=== PATIENT | female | born 1955 | race Caucasian/White ===

== ENCOUNTER 2016-07-18 15:18 | Emergency (ER) | payer OTHER ==
[2016-07-18 15:30] VITALS: BP 122/72; PULSE 94; TEMP 98.1; BMI 34.5
--- NOTE | 2016-07-18 16:20 | PDOC ---
History of Present Illness - General Chief Complaint: Cold Symptoms Stated Complaint: FEVER, CHILLS Time Seen by Provider: 07/18/16 15:57 History Source: Patient Exam Limitations: No Limitations - History of Present Illness Initial Comments: 07/18/16 16:26 Patient states had onset of fevers, MAXIMUM TEMPERATURE 101, moist nonproductive cough although patient is a smoker, general body aches and sore throat pain 2 days. States received a flu shot but was uncertain as to possible contraction of influenza. Has taken ibuprofen with minimal resolved. 07/18/16 16:59 Timing/Duration: reports: getting worse Severity: reports: mild Associated Symptoms: reports: cough, fever/chills, muscle aches, nasal congestion, shortness of breath Past History - Travel Traveled outside of the country in the last 30 days: No Close contact w/someone who was outside of country & ill: No - Past Medical History Allergies/Adverse Reactions: Allergies Allergy/AdvReac Type Severity Reaction Status Date / Time No Known Allergies Allergy Verified 07/18/16 15:30 Home Medications: Ambulatory Orders Clotrimazole [Lotrimin 1% Cream -] 1 applic TP BID #1 tube 07/18/16 Oseltamivir Phosphate [Tamiflu -] 75 mg PO BID #10 capsule 07/18/16 HTN: Yes Thyroid Disease: Yes Other medical history: CHRONIC PAIN - Psycho/Social/Smoking Cessation Hx Anxiety: Yes Suicidal Ideation: No Smoking History: Current every day smoker Have you smoked in the past 12 months: Yes Number of Cigarettes Smoked Daily: 4 Information on smoking cessation initiated: Yes 'Breaking Loose' booklet given: 07/18/16 Hx Alcohol Use: No Drug/Substance Use Hx: No Review of Systems - Review of Systems Able to Perform ROS?: Yes Is the patient limited Azerbaijani proficient: Yes Constitutional: Yes: Symptoms Reported, See HPI, Chills, Malaise HEENTM: Yes: Symptoms Reported, See HPI, Nose Congestion, Throat Swelling Respiratory: Yes: Symptoms reported, See HPI, Cough, Wheezing ABD/GI: Yes: Symptoms Reported, See HPI : No: Symptoms Reported Musculoskeletal: Yes: Symptoms Reported, Muscle Pain Integumentary: Yes: Symptoms Reported, Pruritus, Rash (to pannus folds ) All Other Systems: Reviewed and Negative *Physical Exam - Vital Signs Last Vital Signs Temp Pulse Resp BP Pulse Ox 98.1 F 94 H 20 122/72 96 07/18/16 15:25 07/18/16 15:25 07/18/16 15:25 07/18/16 15:25 07/18/16 15:25 - Physical Exam General Appearance: Yes: Nourished, Appropriately Dressed, Apparent Distress, Mild Distress HEENT: positive: MANUEL, Normal ENT Inspection, TMs Normal Neck: positive: Supple. negative: Tender, Lymphadenopathy (R), Lymphadenopathy (L) Respiratory/Chest: positive: Lungs Clear Cardiovascular: positive: Regular Rhythm Gastrointestinal/Abdominal: positive: Tender, Soft. negative: Normal Bowel Sounds Musculoskeletal: positive: Normal Inspection Extremity: positive: Normal Capillary Refill, Normal Range of Motion Integumentary: positive: Normal Color, Rash, Other (keritonized discolored skin in pannus, consistant with ronni ) Neurologic: positive: eye dropper assembler II-XII NML intact, Fully Oriented, Alert, Normal Mood/ Affect, Normal Response Progress Note - Progress Note Progress Note: Upper respiratory infection, probable influenza. Will treat with Tamiflu. Also tinea corporis and will provide Lotrimin twice a day for same *DC/Admit/Observation/Transfer Diagnosis at time of Disposition: Influenzal acute upper respiratory infection, Tinea corporis - Discharge Dispostion Disposition: HOME Condition at time of disposition: Stable Admit: No - Patient Instructions Printed Discharge Instructions: DI for Viral Upper Respiratory Infection -- Adult, DI for Tinea Corporis Additional Instructions: Rest, drink lots of fluids: Teas, water, soups, Pedialyte Saltwater gargles Steamy showers/seem to face break up mucus Old-fashioned treatments help! Avoid contact with others until fevers and cough resolved as this is very contagious Lots of handwashing and good hygiene Continue [id number] medications for symptomatic relief Tylenol or Motrin for fever and pain Take all of Tamiflu as directed: 1 tab every 12 hours for 5 days Stop smoking Followup with private physician in one to 2 days as needed or if worsening Return to emergency department for worsened symptoms, fevers, dehydration Influenza takes between 5 and 7 days for resolution To not participate in any activity, work, or school until fevers and cough are gone for at least one day Rest, keep cool and dry- avoid strenuous activity or hot /humid environments Less hot showers, no abrasive soaps May use heavy creams like Eucerin or Cetaphil to keep skin moist May apply Aveeno, calamine lotion, [id number] hydrocortisone creams as needed for symptoms May use Benadryl at night for antihistamine, Zyrtec/ Maira or Claritin for daytime antihistamine use to help with itching May use [id number] hydrocortisone cream on all areas except face Try to identify cause for rash and avoid exposures Followup with PMD in one week if no resolution Make appointment with clip on sunglasses inspector for evaluation when possible
== END 2016-07-18 17:20 | disposition home or self-care (01) ==
LOC: JERFT 15:18
DX: B35.4 Tinea corporis (principal); J11.1 Influenza due to unidentified influenza virus with other respiratory manifestations; F17.210 Nicotine dependence, cigarettes, uncomplicated; I10 Essential (primary) hypertension; E07.9 Disorder of thyroid, unspecified; G89.29 Other chronic pain
CPT/HCPCS: 99281-25

== ENCOUNTER 2016-07-25 13:41 | Emergency (ER) | payer OTHER ==
[2016-07-25 13:53] VITALS: BP 138/71; PULSE 107; BMI 33.6
--- NOTE | 2016-07-25 14:39 | PDOC ---
History of Present Illness - General Chief Complaint: Cold Symptoms Stated Complaint: FEVER, BODYACHES Time Seen by Provider: 07/25/16 14:02 History Source: Patient Exam Limitations: No Limitations - History of Present Illness Initial Comments: 07/25/16 15:02 Chief complaint: Fever, chills, productive cough, sore throat History of present illness: Patient is a 61-year-old female with a history of COPD, HTN, hypothyroidism, IBS, anxiety, bilateral total knee replacement here today complaining of sore throat 4 days with nasal congestion, and productive cough with yellowish phlegm with intermittent shortness of breath and wheezing when lying down. Patient also reports having urinary frequency but denies dysuria or hematuria. Patient reports that due to having reconstructive bladder surgery years ago she always has urgency. She denies any nausea, vomiting, OR any CVA tenderness. She was seen here on 07/18/2016 treated with Tamiflu. Patient denies being around anyone sick especially children. Patient reports that her temp last night was a MAXIMUM TEMPERATURE of 102.4. She took ibuprofen 800 mg 2 hours ago. 07/25/16 15:06 07/25/16 15:07 Timing/Duration: getting worse, intermittent Severity: moderate Associated Symptoms: reports: cough (yellowish), fever/chills, shortness of breath (intermittent ), other (urinary frequency ) Past History - Past Medical History Allergies/Adverse Reactions: Allergies Allergy/AdvReac Type Severity Reaction Status Date / Time No Known Allergies Allergy Verified 07/25/16 13:48 Home Medications: Ambulatory Orders Albuterol Sulfate Inhaler - [Ventolin HFA Inhaler -] 1 inh PO Q4H PRN #1 inhaler 07/25/16 Amoxicillin/Potassium Clav [Augmentin 875-125 Tablet] 1 each PO BID #14 tablet 07/25/16 COPD: Yes HTN: Yes Thyroid Disease: Yes - Surgical History Cholecystectomy: Yes Orthopedic Surgery: Yes (b/l tkr) - Psycho/Social/Smoking Cessation Hx Anxiety: Yes Suicidal Ideation: No Smoking History: Current every day smoker Have you smoked in the past 12 months: Yes Number of Cigarettes Smoked Daily: 4 Information on smoking cessation initiated: No 'Breaking Loose' booklet given: 07/18/16 Hx Alcohol Use: No Drug/Substance Use Hx: No Review of Systems - Review of Systems Able to Perform ROS?: Yes Constitutional: Yes: Chills, Fever HEENTM: Yes: Throat Pain Respiratory: Yes: Shortness of Breath (intermittent ), Wheezing (intermittent ) , Productive cough (yellowish ) Cardiac (ROS): No: Symptoms Reported : Yes: Frequency (slightly more than usual ), Urgency (unchanged has chronically ). No: Burning, Flank Pain, Hematuria Musculoskeletal: No: Symptoms Reported Integumentary: No: Symptoms Reported Neurological: No: Symptoms reported *Physical Exam - Vital Signs Last Vital Signs Temp Pulse Resp BP Pulse Ox 9.2 F L 107 H 18 138/71 95 07/25/16 13:43 07/25/16 13:43 07/25/16 13:43 07/25/16 13:43 07/25/16 13:43 - Physical Exam General Appearance: Yes: Appropriately Dressed HEENT: positive: TMs Normal, Pharyngeal Erythema. negative: Tonsillar Exudate, Tonsillar Erythema, Nasal Congestion, Rhinorrhea Neck: negative: Lymphadenopathy (R), Lymphadenopathy (L) Respiratory/Chest: positive: Lungs Clear, Normal Breath Sounds, Decreased Breath Sounds (slight diffuse) Cardiovascular: positive: Regular Rhythm, Regular Rate, S1, S2 Musculoskeletal: negative: CVA Tenderness, CVA Tenderness (R), CVA Tenderness (L ) Integumentary: positive: Normal Color Neurologic: positive: Alert, Normal Response, Responsive Medical Decision Making - Medical Decision Making 07/25/16 15:06 Patient is a 61-year-old female with a history of COPD, IBS, anxiety, bilateral total knee replacement here today complaining of sore throat 4 days with nasal congestion, and productive cough with yellowish phlegm with intermittent shortness of breath and wheezing when lying down. Patient also reports having urinary frequency but denies dysuria or hematuria. Patient reports that due to having reconstructive bladder surgery years ago she always has urgency. She denies any nausea, vomiting, OR any CVA tenderness. She was seen here on 2016 treated with Tamiflu. Patient denies being around anyone sick especially children. Patient reports that her temp last night was a MAXIMUM TEMPERATURE of 102.4. She took ibuprofen 800 mg 2 hours ago. 07/25/16 15:09 productive cough r/o infiltrate pharyngitis r/o strep r/o infiltrate r/o UTI BRONCHITIS Laboratory Tests 07/25/16 14:50 Urine Color Rena Urine Appearance Clear Urine pH 5.0 Ur Specific [place] 1.031 Urine Protein 1+ H Urine Glucose (UA) Negative Urine Ketones Trace H Urine Blood Negative Urine Nitrite Negative Urine Bilirubin 4.0 Urine Urobilinogen 2.0 e.u/dl H Ur Leukocyte Esterase Trace H PLAN: u/a urine c& S duoneb influenza A & B rapid negative throat C & S negative xray chest PA/lateral no acute pathology will treat with augmenting 875 mg/125 mg bid for 7 days 07/25/16 16:20 07/25/16 16:23 07/25/16 16:36 *DC/Admit/Observation/Transfer Diagnosis at time of Disposition: Bronchitis - Discharge Dispostion Disposition: HOME Condition at time of disposition: Stable - Patient Instructions Additional Instructions: Increase fluids and rest Follow-up with your primary care provider within the next couple of days Return to emergency room if any difficulty breathing or any new symptoms develop We will call you if any pending labs require you to take additional medication Patient voiced understanding of discharge instructions and all questions were answered
[2016-07-25] MEDS ORDERED: ALBUTEROL SO4 2.5/IPRATROPIUM 0.5 INH SOL 3 ML VIAL.NEB. NEB ONE ×3 (14:56→15:09)
[2016-07-25 15:01] VITALS: TEMP 99.2
[2016-07-25 15:03] LABS: URINE APPEARANCE CLEAR; URINE BLOOD NEGATIVE (NEGATIVE); URINE COLOR AMBER; URINE GLUCOSE (UA) NEGATIVE (NEGATIVE); URINE KETONE TRACE (NEGATIVE); URINE NITRITE NEGATIVE (NEGATIVE); URINE UROBILINOGEN 2.0 E.U/dl E.U./dl (0.2-1.0)
[2016-07-25 15:25] LABS: URINE LEUK ESTERASE TRACE (NEGATIVE); URINE PROTEIN 1+ (NEGATIVE)
== END 2016-07-25 16:48 | disposition home or self-care (01) ==
LOC: JER 13:41 → JERFT 13:41
PROC: 3E0F7GC Introduction of Other Therapeutic Substance into Respiratory Tract, Via Natural or Artificial Opening (ICD-10-PCS; principal; 2016-07-25)
DX: J20.9 Acute bronchitis, unspecified (principal); I10 Essential (primary) hypertension; J44.9 Chronic obstructive pulmonary disease, unspecified; E03.9 Hypothyroidism, unspecified; F41.9 Anxiety disorder, unspecified; K58.9 Irritable bowel syndrome, unspecified
CPT/HCPCS: 71020-TC; 81003; 81015; 87070; 87430; 87804; 94640; 99281-25

== ENCOUNTER 2017-04-30 16:39 | Emergency (ER) | payer OTHER ==
[2017-04-30 16:46] VITALS: BP 139/86; PULSE 77; TEMP 98.6; BMI 34.9
--- NOTE | 2017-04-30 16:49 | PDOC ---
Rapid Medical Evaluation Chief Complaint: Back Pain Time Seen by Provider: 04/30/17 16:46 Medical Evaluation: Allergies Allergy/AdvReac Type Severity Reaction Status Date / Time No Known Allergies Allergy Verified 04/30/17 16:40 Vital Signs Temp Pulse Resp BP Pulse Ox 98.6 F 77 18 139/86 100 04/30/17 16:42 04/30/17 16:42 04/30/17 16:42 04/30/17 16:42 04/30/17 16:42 04/30/17 16:46 The patient presents with a chief complaint of: Lower Back pain for 3/4 days, Tactile fever. ] I have performed a brief in-person evaluation of this patient. Pertinent physical exam findings: vss, [Abdomen is soft, nontender, nondistended, Lungs clear, RRR] I have ordered the following: [UA, UC] The patient will proceed to the ED for further evaluation. Discharge Disposition - Diagnosis Back pain Qualifiers: Back pain location: low back pain Chronicity: acute - Referrals - Patient Instructions - Post Discharge Activity
[2017-04-30 17:27] LABS: URINE APPEARANCE CLEAR; URINE BILIRUBIN NEGATIVE (NEGATIVE); URINE BLOOD NEGATIVE (NEGATIVE); URINE COLOR LTYELLOW; URINE GLUCOSE (UA) NEGATIVE (NEGATIVE); URINE KETONE NEGATIVE (NEGATIVE); URINE LEUK ESTERASE NEGATIVE (NEGATIVE); URINE NITRITE NEGATIVE (NEGATIVE); URINE PROTEIN NEGATIVE (NEGATIVE); URINE UROBILINOGEN NEGATIVE mg/dL (0.2-1.0)
--- NOTE | 2017-04-30 17:37 | PDOC ---
History of Present Illness - General Chief Complaint: Back Pain Stated Complaint: PAIN Time Seen by Provider: 04/30/17 16:46 History Source: Patient Exam Limitations: No Limitations - History of Present Illness Initial Comments: 04/30/17 17:34 62 yr female with c/o urinary urgency and pain for 2 days. neg nvd Severity: mild Past History - Past Medical History Allergies/Adverse Reactions: Allergies Allergy/AdvReac Type Severity Reaction Status Date / Time No Known Allergies Allergy Verified 04/30/17 16:40 Home Medications: Ambulatory Orders NK [No Known Home Medication] 04/30/17 COPD: Yes HTN: Yes Thyroid Disease: Yes Other medical history: back pain chronic - Surgical History Cholecystectomy: Yes Orthopedic Surgery: Yes (b/l tkr) - Suicide/Smoking/Psychosocial Hx Smoking History: Current every day smoker Have you smoked in the past 12 months: Yes Number of Cigarettes Smoked Daily: 4 Information on smoking cessation initiated: Yes 'Breaking Loose' booklet given: 04/30/17 Hx Alcohol Use: No Drug/Substance Use Hx: No Substance Use Type: None Review of Systems - Review of Systems Able to Perform ROS?: Yes Is the patient limited Cymro proficient: No Constitutional: No: Symptoms Reported ABD/GI: No: Symptoms Reported : Yes: Symptoms Reported *Physical Exam - Vital Signs Last Vital Signs Temp Pulse Resp BP Pulse Ox 98.6 F 77 18 139/86 100 04/30/17 16:42 04/30/17 16:42 04/30/17 16:42 04/30/17 16:42 04/30/17 16:42 - Physical Exam General Appearance: Yes: Nourished, Appropriately Dressed HEENT: positive: EOMI, MANUEL Neck: positive: Supple. negative: Tender Respiratory/Chest: positive: Lungs Clear, Normal Breath Sounds, Other (prod cough yellow white phlegm). negative: Rhonchi, Wheezing Cardiovascular: positive: Regular Rhythm, Regular Rate Gastrointestinal/Abdominal: positive: Normal Bowel Sounds, Soft. negative: Tender Lymphatic: negative: Adenopathy Musculoskeletal: positive: Normal Inspection Extremity: positive: Normal Capillary Refill, Normal Inspection, Normal Range of Motion Integumentary: positive: Normal Color, Dry, Warm Neurologic: positive: Fully Oriented, Alert, Normal Mood/Affect, Normal Response , Motor Strength 5/5 Medical Decision Making - Medical Decision Making 04/30/17 19:37 cc: low back pain, urinary urgency which is chronic pt states neg nvd pos cough productive yellow phlegm no abd pain neg nvd pt followed by pain management vitals stable will check UA non toxic stable vitals I discussed with the pt her urine is negative, as pt has vague urinary complaints will wait for the urine culture pt agrees and will also follow with her PMD this week if any changes 04/30/17 19:42 *DC/Admit/Observation/Transfer Diagnosis at time of Disposition: Back pain Qualifiers: Back pain location: low back pain Chronicity: acute Back pain laterality: bilateral Sciatica presence: without sciatica Qualified Code(s): M54.5 - Low back pain - Discharge Dispostion Disposition: HOME Condition at time of disposition: Good - Referrals Referrals: Monty Higgins MD [Staff Physician] - - Patient Instructions Additional Instructions: please follow with your doctor in 1-2 days for follow up the urine sample today does NOT show any infection, we have sent out a culture and we will call you in a few days if any treatment is needed drink pleanty of water take tylenol 650mg every 4-6hrs for fever as needed Return to ER for any worsening symptoms - Post Discharge Activity
--- NOTE | 2017-05-03 07:47 | PDOC ---
Patient Follow-up (Call Back) - Post ED Follow - Up Condition at time of discharge: Good Disposition at time of original discharge: HOME Reason for Call Back: Abnwl. Microbiology (Left message on patient's home phone) - Disposition Rx Needed: Yes Additional Instructions/Notes: Pt called back. Sent Rx for Macrobid to pharmacy.
== END 2017-04-30 17:51 | disposition home or self-care (01) ==
LOC: JERFT 16:39
DX: M54.5 Low back pain (principal); I10 Essential (primary) hypertension; J44.9 Chronic obstructive pulmonary disease, unspecified; Z96.653 Presence of artificial knee joint, bilateral; Z90.49 Acquired absence of other specified parts of digestive tract; F17.210 Nicotine dependence, cigarettes, uncomplicated
CPT/HCPCS: 81003; 87086; 87186; 99281-25

== ENCOUNTER 2018-07-25 14:20 | Emergency (ER) | payer OTHER ==
[2018-07-25] MEDS ORDERED: ALBUTEROL SO4 2.5/IPRATROPIUM 0.5 INH SOL 3 ML VIAL.NEB. NEB ONE ×4 (14:24→16:56)
--- NOTE | 2018-07-25 14:26 | PDOC ---
Rapid Medical Evaluation Chief Complaint: Respiratory Time Seen by Provider: 07/25/18 14:21 Medical Evaluation: Allergies Allergy/AdvReac Type Severity Reaction Status Date / Time No Known Allergies Allergy Verified 10/15/17 15:42 07/25/18 14:21 63 year old female coughing and phelgm with SOB x 2 days. history of COPD PE: patient alert ox3. + wheezing A'; SOB P: labs chest xray EKG duoneb patient to the ER for further management of care. Discharge Disposition - Diagnosis Shortness of breath - Referrals - Patient Instructions - Post Discharge Activity
[2018-07-25 14:30] VITALS: BMI 33.6
[2018-07-25 14:54] LABS: BASO % 0.9 % (0-2.0); EOS % 1.8 % (0-4.5); HEMATOCRIT 42.2 % (32.4-45.2); HEMOGLOBIN 14.1 GM/dL (10.7-15.3); LYMPH % 21.2 % (8-40); MCH 30.2 pg (25.7-33.7); MCHC 33.5 g/dl (32.0-36.0); NEUT % 71.1 % (42.8-82.8); PLATELET COUNT 354 K/MM3 (134-434); RBC 4.69 M/mm3 (3.60-5.2); RDW 14.5 % (11.6-15.6); WHITE BLOOD COUNT 11.1 K/mm3 (4.0-10.0)
[2018-07-25 15:06] LABS: INR 0.97 (0.83-1.09); PROTHROMBIN TIME (PATIENT) 11.4 SEC (9.7-13.0)
[2018-07-25 15:07] LABS: EPI CELLS 14.2 /HPF (0-5/HPF); PH,URINE 5.5 (5.0-8.0); URINE APPEARANCE CLOUDY; URINE BACTERIA 1273.2 /hpf (NEGATIVE); URINE BILIRUBIN 1+ (NEGATIVE); URINE CASTS 17 /lpf (0-8); URINE COLOR DK YELLOW; URINE GLUCOSE (UA) NEGATIVE (NEGATIVE); URINE KETONE TRACE (NEGATIVE); URINE LEUK ESTERASE TRACE (NEGATIVE); URINE NITRITE POSITIVE (NEGATIVE); URINE PROTEIN NEGATIVE (NEGATIVE); URINE RBC 2 /hpf (0-4); URINE WBC 6 /hpf (0-5)
--- NOTE | 2018-07-25 15:07 | PDOC ---
History of Present Illness - General Chief Complaint: Respiratory Stated Complaint: COUGHING Time Seen by Provider: 07/25/18 14:21 - History of Present Illness Initial Comments: 07/25/18 15:25 The patient is a 63 year old female with a history of HTN, Hypothyroid, COPD who presents for evaluation of cough and shortness of breath. The patient reports a 2 day history of worsening productive cough and shortness of breath prompting her presentation to the ED for further evaluation. The patient denies any recent steroid use or antibiotic use and otherwise denies fevers, chills, chest pain, nausea, vomiting, abdominal pain, or changes with urination or bowel movements. Past History - Past Medical History Allergies/Adverse Reactions: Allergies Allergy/AdvReac Type Severity Reaction Status Date / Time No Known Allergies Allergy Verified 07/25/18 14:30 Home Medications: Ambulatory Orders Albuterol Sulfate Inhaler - [Ventolin Hfa Inhaler -] 1 - 2 inh PO QID 07/25/18 Alprazolam [Xanax] 1 mg PO QID PRN 07/25/18 Amlodipine Besylate [Norvasc -] 5 mg PO DAILY 07/25/18 Atorvastatin Ca [Lipitor] 20 mg PO HS 07/25/18 Azithromycin [Zithromax 250mg Tablets -] 250 mg PO UTDICT #4 tab 07/25/18 Fluticasone/Vilanterol [Breo Ellipta 100-25 Mcg INH] 1 each IH DAILY 07/25/18 Ibuprofen [Ibu] 800 mg PO BID PRN 07/25/18 Omeprazole 20 mg PO DAILY 07/25/18 Prednisone [Prednisone 50 MG TABLETS] 50 mg PO DAILY #5 tablet 07/25/18 Tramadol HCl 50 mg PO BID PRN 07/25/18 Umeclidinium [place] [Incruse Ellipta] 62.5 mcg IH DAILY 07/25/18 COPD: Yes HTN: Yes Thyroid Disease: Yes - Surgical History Cholecystectomy: Yes Orthopedic Surgery: Yes (b/l tkr) - Suicide/Smoking/Psychosocial Hx Smoking History: Former smoker Have you smoked in the past 12 months: No Number of Cigarettes Smoked Daily: 4 Information on smoking cessation initiated: No 'Breaking Loose' booklet given: 10/15/17 Hx Alcohol Use: No Drug/Substance Use Hx: No Substance Use Type: None Review of Systems - Review of Systems Comments:: 07/25/18 15:29 Constitutional: No fevers, chills, fatigue, malaise HEENT: No Rhinorrhea, nasal congestion, visual changes Cardiovascular: No chest pain, syncope, palpitations, lightheadedness Respiratory: Productive Cough, SOB, No Hemoptysis, Gastrointestinal: No Abdominal pain, Nausea, Vomiting, Constipation, Diarrhea, Melena Genitourinary: No Dysuria, Frequency, Urgency, Hesitancy, Hematuria, Flank pain Musculoskeletal: No Myalgia, arthralgia Skin: No rashes, itching, bruising, pallor Neurologic: No Headache, Dizziness, Numbness, Weakness, or Tingling Psychiatric: No Hallucinations. No SI or HI *Physical Exam - Vital Signs Last Vital Signs Temp Pulse Resp BP Pulse Ox 97.9 F 64 18 93/33 L 97 07/25/18 14:22 07/25/18 14:22 07/25/18 14:22 07/25/18 14:22 07/25/18 14:22 - Physical Exam Comments: 07/25/18 15:30 General Appearance: Nourished. No Apparent Distress HEENT: No Pharyngeal Erythema, Tonsillar Exudate, Tonsillar Erythema Neck: No Cervical Lymphadenopathy Respiratory/Chest: Lungs Clear, Normal Breath Sounds. Scant expiratory wheezing noted on exam. No Crackles, Rales, Rhonchi, Cardiovascular: Regular Rhythm, Regular Rate. No Murmur, Gallops, Rubs Gastrointestinal/Abdominal: Normal Bowel Sounds, Soft. No Guarding, Rebound, Tenderness Musculoskeletal: No CVA Tenderness Extremity: Normal Capillary Refill Integumentary: Normal Color, Dry, Warm Neurologic: Fully Oriented, Alert, Normal Mood/Affect, Normal Response, ED Treatment Course - LABORATORY CBC & Chemistry Diagram: 07/25/18 14:41 07/25/18 14:41 - ADDITIONAL ORDERS Additional order review: Laboratory Results 07/25/18 14:41 PT with INR 11.40 INR 0.97 07/25/18 14:41 RBC 4.69 MCV 90.0 MCHC 33.5 RDW 14.5 MPV 8.0 Neutrophils % 71.1 Lymphocytes % 21.2 Monocytes % 5.0 Eosinophils % 1.8 Basophils % 0.9 - Medications Given in the ED: ED Medications Discontinued Medications Generic Name Dose Route Start Last Admin Trade Name Freq PRN Reason Stop Dose Admin Albuterol/Ipratropium 1 amp 07/25/18 14:24 07/25/18 14:59 Duoneb - NEB 07/25/18 14:25 1 amp ONCE ONE Administration Medical Decision Making - Medical Decision Making 07/25/18 15:31 The patient is a 63 year old female with a history of HTN, Hypothyroid, COPD who presents for evaluation of cough and shortness of breath. Differential includes but is not limited to: COPD, Pneumonia, Infectious, Metabolic Derangement. Given the patient's history and physical exam, we will obtain a cbc, cmp, troponin, bnp, ekg, chest plain film to evaluate further. The patient was treated with duonebs in triage and reports significant improvement in her symptoms with improvement in her wheezing on exam as well. We will treat with solumedrol and azithromycin and continue to monitor and reassess while here in the ED. 07/25/18 17:09 CBC, cmp, troponin are unremarkable. Chest plain film is unremarkable. The patient reports improvement in her symptoms and appears clinically well on exam. We are comfortable discharging the patient home in stable condition with prednisone and azithromycin. Patient was made aware of impression and plan, return precautions discussed including but not limited to worsening pain or symptoms, fevers, or signs of infection, chest pain, respiratory distress, inability to tolerate oral intake, dehydration, syncope, or neurologic changes. The patient is to follow up with PMD and as recommended within 1 week, follow up information provided and the patient will call for an appointment. The patient is to take medications as instructed for duration of time and continue with supportive care, avoid triggers and precipitants. Patient is safe for outpatient follow-up. *DC/Admit/Observation/Transfer Diagnosis at time of Disposition: Shortness of breath - Discharge Dispostion Disposition: HOME Condition at time of disposition: Stable Decision to Admit order: No - Prescriptions Prescriptions: Azithromycin [Zithromax 250mg Tablets -] 250 mg PO UTDICT #4 tab Prednisone [Prednisone 50 MG TABLETS] 50 mg PO DAILY #5 tablet - Referrals Referrals: Luis More [Primary Care Provider] - - Patient Instructions Printed Discharge Instructions: DI for Chronic Obstructive Pulmonary Disease Additional Instructions: 1) Please follow-up with your primary care doctor in the next 2-3 days. Please call tomorrow to schedule a follow up appointment. If you cannot follow up with your doctor within 1 week please return to the Emergency Department for any urgent issues. 2) If you have any worsening of symptoms or any other concerns please return to the ER immediately. Return if worsening symptoms including fevers, headache, vomiting, visual or hearing disturbances, abdominal pain, chest pain, shortness of breath, syncope, dehydration, inability to take things by mouth/vomiting, altered mental status, or worsening concerning symptoms. 3) Please continue taking your home medications as directed. Your medications on discharge include Prednisone and Azithromycin. Side effects may include upset stomach, abdominal pain, vomiting, or diarrhea. - Post Discharge Activity
[2018-07-25] MEDS ORDERED: methylPREDNISolone NA SUCC 125 MG/2 ML VIAL IVPUSH ONE (15:22)
[2018-07-25] MEDS ORDERED: AZITHROMYCIN 250 MG TABLET PO ONE (15:23)
[2018-07-25 15:27] LABS: ALBUMIN 3.3 g/dl (3.4-5.0); ALK PHOS 123 U/L (45-117); ANION GAP 7 MMOL/L (8-16); BILIRUBIN,TOTAL 0.2 mg/dL (0.2-1); BLOOD UREA NITROGEN 19 mg/dL (7-18); CALCIUM 9.3 mg/dL (8.5-10.1); CHLORIDE 108 mmol/L (98-107); CO2 25 mmol/L (21-32); CREATININE 0.8 mg/dL (0.55-1.3); GLUCOSE,RANDOM 103 mg/dL (74-106); MAGNESIUM 2.2 mg/dL (1.8-2.4); N-TERMINAL BNP 63.2 pg/ml (5-125); POTASSIUM 4.7 mmol/L (3.5-5.1); SGOT/AST 14 U/L (15-37); SGPT/ALT 19 U/L (13-61); SODIUM 140 mmol/L (136-145); TOT PROT 6.5 g/dl (6.4-8.2)
[2018-07-25] MEDS ORDERED: methylPREDNISolone NA SUCC 125 MG/2 ML VIAL ONE (15:30)
[2018-07-25] MEDS ORDERED: AZITHROMYCIN 250 MG TABLET ONE (15:30)
--- NOTE | 2018-07-25 16:37 | PDOC ---
Documentation entered by Felisha Adams SCRIBE, acting as scribe for Silvestre Abreu MD. Silvestre Abreu MD: This documentation has been prepared by the Bryan vuong Amanda, SCRIBE, under my direction and personally reviewed by me in its entirety. I confirm that the documentation accurately reflects all work, treatment, procedures, and medical decision making performed by me. Attending Attestation - Resident Resident Name: Steven Fox - ED Attending Attestation I have performed the following: I have examined & evaluated the patient, The case was reviewed & discussed with the resident, I agree w/resident's findings & plan, Exceptions are as noted - HPI HPI: 07/25/18 15:32 The patient is a 63 year old female with a significant past medical history of HTN, Hypothyroid, COPD who presents to the ED for evaluation of cough and shortness of breath for 2 days. She believes she is having a COPD exacerbation. The patient reports her cough is productive of white sputum. Denies F/C. States that she has been using her albuterol pump at home with some relief. The patient denies chest pain, dizziness, palpitations. The patient denies fevers, chills, nausea, vomiting, abdominal pain, or changes with urination or bowel movements. Denies leg swelling. No recent travel/immobilizaiton. - Physicial Exam PE: 07/25/18 16:36 GENERAL: Awake, alert, and fully oriented, in no acute distress. HEAD: No signs of trauma EYES: PERRLA, EOMI, sclera anicteric, conjunctiva clear ENT: Auricles normal inspection, hearing grossly normal, nares patent, oropharynx clear without exudates. Moist mucosa NECK: Nontender, no stepoffs, Normal ROM, supple, no lymphadenopathy, JVD, or masses LUNGS: + expiratory wheezes HEART: Regular rate and rhythm, normal S1 and S2, no murmurs, rubs or gallops ABDOMEN: Soft, nontender, normoactive bowel sounds. No guarding, no rebound. No masses EXTREMITIES: Normal range of motion, no edema. No clubbing or cyanosis. No cords, erythema, or tenderness NEUROLOGICAL: Cranial nerves II through XII intact. 5/5 strength and sensation in all extremities, Normal speech, normal gait, normal cerebellar function SKIN: Warm, Dry, normal turgor, no rashes or lesions noted. - Medical Decision Making 07/25/18 16:36 63 F with cough, SOB. Wheezing on exam. Likely COPD exacerbation. - Labs, trop - CXR - Nebs, steroids, azithro 07/25/18 16:48 Pt feeling much better s/p nebs and steroids CXR clear Repeat lung exam clear Pt is well appearing, with normal vitals. Clinically stable for DC at this time. I discussed the physical exam findings, ancillary test results and final diagnoses with the patient. I answered all of the patient's questions. The patient was satisfied with the care received and felt comfortable with the discharge plan and treatment plan. The patient agrees to follow up with the primary care physician within 24-72 hours.
[2018-07-25] MEDS: ALBUTEROL SO4 2.5/IPRATROPIUM 0.5 INH SOL 3 ML VIAL.NEB. NEB SCH ×4 (16:41→18:04)
[2018-07-25 18:21] VITALS: BP 106/73; PULSE 79; TEMP 98.2
--- NOTE | 2018-07-26 11:26 | EKG ---
Test Reason : Blood Pressure : / mmHG Vent. Rate : 060 BPM Atrial Rate : 060 BPM P-R Int : 124 ms QRS Dur : 080 ms QT Int : 438 ms P-R-T Axes : 044 040 048 degrees QTc Int : 438 ms NORMAL SINUS RHYTHM NO PREVIOUS ECGS AVAILABLE Confirmed by SUSANNE COFFEY MD ([id number]) on 07/26/2018 11:26:45 AM Referred By: Confirmed By:SUSANNE COFFEY MD
== END 2018-07-25 18:21 | disposition home or self-care (01) ==
LOC: JER 14:20
PROC: 3E0F7GC Introduction of Other Therapeutic Substance into Respiratory Tract, Via Natural or Artificial Opening (ICD-10-PCS; principal; 2018-07-25)
PROC: 3E0F7GC Introduction of Other Therapeutic Substance into Respiratory Tract, Via Natural or Artificial Opening (ICD-10-PCS; 2018-07-25)
PROC: 3E0333Z Introduction of Anti-inflammatory into Peripheral Vein, Percutaneous Approach (ICD-10-PCS; 2018-07-25)
DX: J44.1 Chronic obstructive pulmonary disease with (acute) exacerbation (principal); I10 Essential (primary) hypertension; E03.9 Hypothyroidism, unspecified
CPT/HCPCS: 36415; 71046-TC-FY; 80053; 81003; 82550; 83735; 83880; 84484; 85025; 85610; 93005; 93010; 99284-25

== ENCOUNTER 2018-10-11 18:26 | Emergency (ER) | payer OTHER ==
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
[2018-10-11 18:43] VITALS: BP 98/67; PULSE 74; TEMP 98.4; BMI 45.9
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
== END 2018-10-11 20:33 | disposition home or self-care (01) ==
LOC: JERFT 18:26
DX: M54.2 Cervicalgia (principal); V48.6XXA Car passenger injured in noncollision transport accident in traffic accident, initial encounter; Y92.414 Local residential or business street as the place of occurrence of the external cause; Y93.89 Activity, other specified; Y99.8 Other external cause status
CPT/HCPCS: 72125-TC; 99281-25

== ENCOUNTER 2018-12-08 00:32 | Emergency (ER) | payer OTHER ==
[2018-12-08 01:26] VITALS: BP 109/60; PULSE 77; TEMP 98.4; BMI 35.4
--- NOTE | 2018-12-08 02:47 | PDOC ---
History of Present Illness - General Chief Complaint: Injury Stated Complaint: LEFT FOOT SWELLING Time Seen by Provider: 12/08/18 02:29 Past History - Travel Traveled outside of the country in the last 30 days: No Close contact w/someone who was outside of country & ill: No - Past Medical History Allergies/Adverse Reactions: Allergies Allergy/AdvReac Type Severity Reaction Status Date / Time No Known Allergies Allergy Verified 12/08/18 01:22 Home Medications: Ambulatory Orders Albuterol Sulfate Inhaler - [Ventolin Hfa Inhaler -] 1 - 2 inh PO QID 07/25/18 Alprazolam [Xanax] 1 mg PO QID PRN 07/25/18 Amlodipine Besylate [Norvasc -] 5 mg PO DAILY 07/25/18 Atorvastatin Ca [Lipitor] 20 mg PO HS 07/25/18 Azithromycin [Zithromax 250mg Tablets -] 250 mg PO UTDICT #4 tab 07/25/18 Fluticasone/Vilanterol [Breo Ellipta 100-25 Mcg INH] 1 each IH DAILY 07/25/18 Ibuprofen [Ibu] 800 mg PO BID PRN 07/25/18 Omeprazole 20 mg PO DAILY 07/25/18 Prednisone [Prednisone 50 MG TABLETS] 50 mg PO DAILY #5 tablet 07/25/18 Tramadol HCl 50 mg PO BID PRN 07/25/18 Umeclidinium [place] [Incruse Ellipta] 62.5 mcg IH DAILY 07/25/18 Oxycodone HCl 5 mg PO Q4H #20 capsule MDD 6 10/11/18 Clindamycin [Cleocin -] 300 mg PO Q6HPO #28 capsule 12/08/18 COPD: Yes HTN: Yes Thyroid Disease: Yes - Surgical History Cholecystectomy: Yes Orthopedic Surgery: Yes (b/l tkr) - Suicide/Smoking/Psychosocial Hx Smoking History: Unknown if ever smoked Have you smoked in the past 12 months: No Number of Cigarettes Smoked Daily: 5 'Breaking Loose' booklet given: 10/15/17 Hx Alcohol Use: No Drug/Substance Use Hx: No Substance Use Type: None Review of Systems - Review of Systems Able to Perform ROS?: Yes Is the patient limited Lithuanian proficient: Yes Constitutional: No: Symptoms Reported, See HPI, Chills, Diaphoresis, Fever, Loss of Appetite, Malaise, Night Sweats, Weakness, Weight Stable, Unintentional Wgt. Loss, Unexplained wgt Loss, Other HEENTM: No: Symptoms Reported, See HPI, Eye Pain, Blurred Vision, Tearing, Recent change in vision, Double Vision, Cataracts, Ear Pain, Ocular Prothesis, Ear Discharge, Nose Pain, Nose Congestion, Tinnitus, Nose Bleeding, Hearing Loss , Throat Pain, Throat Swelling, Mouth Pain, Dental Problems, Difficulty Swallowing, Mouth Swelling, Other Respiratory: No: Symptoms reported, See HPI, Cough, Orthopnea, Shortness of Breath, SOB with Exertion, SOB at Rest, Stridor, Wheezing, Productive cough, Hemoptysis, Other Cardiac (ROS): No: Symptoms Reported, See HPI, Chest Pain, Edema, Irregular Heart Rate, Lightheadedness, Palpitations, Syncope, Chest Tightness, Other ABD/GI: No: Symptoms Reported, See HPI, Abdominal Distended, Abd. Pain w/ defecation, Blood Streaked Bowels, Constipated, Diarrhea, Difficulty Swallowing , Nausea, Poor Appetite, Poor Fluid Intake, Rectal Bleeding, Vomiting, Indigestion, Abdominal cramping, Tarry Stools, Other Musculoskeletal: No: Symptoms Reported, See HPI, Back Pain, Gout, Joint Pain, Joint Swelling, Muscle Pain, Muscle Weakness, Neck Pain, Joint Stiffness, Other Integumentary: No: Symptoms Reported, See HPI, Bruising, Change in Color, Change in Hair/Nails, Dryness, Erythema, Flushing, Lesions, Lumps, Pallor, Pruritus, Rash, Sweating, Other Neurological: No: Symptoms reported, See HPI, Headache, Numbness, Paresthesia, Pre-Existing Deficit, Seizure, Tingling, Tremors, Weakness, Unsteady Gait, Ataxia, Dizziness, Other Psychiatric: No: Anxiety, Depression, Frequent Crying, Stressors, Sleep Pattern Change, Emotional Problems, Mood Swings, Change in Appetite, Other Endocrine: No: Symptoms Reported, See HPI, Excessive Sweating, Flushing, Intolerance to Cold, Intolerance to Heat, Increased Hunger, Increased Thirst, Increased Urine, Unexplained Weight Gain, Unexplained Weight Loss, Change in Weight, Other Hematologic/Lymphatic: No: Symptoms Reported, See HPI, Anemia, Blood Clots, Easy Bleeding, Easy Bruising (Pt's pet cat accidentally scratched her on her left ankle. She has chronic swelling of her left foot to surgery in the foot and titanium hardware in the 2st and 5th digits/metatarsals), Bleeding Diathesis, Lymph Node Abnormalities, Swollen Glands, Other *Physical Exam - Vital Signs Last Vital Signs Temp Pulse Resp BP Pulse Ox 98.4 F 77 18 109/60 98 12/08/18 01:21 12/08/18 01:21 12/08/18 01:21 12/08/18 01:21 12/08/18 01:21 ED Treatment Course - LABORATORY CBC & Chemistry Diagram: 12/08/18 03:30 12/08/18 03:30 Medical Decision Making - Medical Decision Making 12/08/18 22:33 Labs are normal and she is feeling better with motrin and she is able to ambulate. Pt is stable for discharge home *DC/Admit/Observation/Transfer Diagnosis at time of Disposition: Cat scratch of left lower leg - Discharge Dispostion Disposition: HOME Condition at time of disposition: Stable Decision to Admit order: No - Prescriptions Prescriptions: Clindamycin [Cleocin -] 300 mg PO Q6HPO #28 capsule - Referrals Referrals: Luis More [Primary Care Provider] - - Patient Instructions Printed Discharge Instructions: Skin Wound Additional Instructions: FOLLOW WITH YOUR PRIMARY DOCTOR AND YOUR PODIARIST. - Post Discharge Activity
[2018-12-08] MEDS ORDERED: CLINDAMYCIN 600MG PREMIX IVPB 600 MG/50 ML BAG IVPB ONE (03:02)
[2018-12-08] MEDS ORDERED: CLINDAMYCIN PHOSPHATE 600 MG/4 ML VIAL ONE (03:26)
[2018-12-08 03:57] LABS: BASO % 0.9 % (0-2.0); HEMATOCRIT 40.2 % (32.4-45.2); HEMOGLOBIN 13.4 GM/dL (10.7-15.3); MCH 31.4 pg (25.7-33.7); MCHC 33.2 g/dl (32.0-36.0); MEAN CELL VOLUME 94.6 fl (80-96); MEAN PLT VOLUME 8.8 fl (7.5-11.1); MONO % 5.3 % (3.8-10.2); NEUT % 62.8 % (42.8-82.8); PLATELET COUNT 282 K/MM3 (134-434); RBC 4.26 M/mm3 (3.60-5.2); RDW 14.1 % (11.6-15.6)
[2018-12-08 04:19] LABS: ALBUMIN 3.4 g/dl (3.4-5.0); BILIRUBIN,TOTAL 0.3 mg/dL (0.2-1); BLOOD UREA NITROGEN 12.3 mg/dL (7-18); CALCIUM 9.4 mg/dL (8.5-10.1); CREATININE 0.7 mg/dL (0.55-1.3); TOT PROT 6.1 g/dl (6.4-8.2)
[2018-12-08] MEDS ORDERED: IBUPROFEN 600 MG TABLET (FP) PO ONE ×2 (06:18→06:21)
== END 2018-12-08 05:43 | disposition home or self-care (01) ==
LOC: JER 00:32
DX: S90.512A Abrasion, left ankle, initial encounter (principal); W55.03XA Scratched by cat, initial encounter; Y93.89 Activity, other specified; Y92.038 Other place in apartment as the place of occurrence of the external cause; Y99.8 Other external cause status
CPT/HCPCS: 36415; 80053; 85025; 85651; 99283-25

== ENCOUNTER 2019-03-04 16:21 | Emergency (ER) | payer OTHER ==
[2019-03-04 16:31] VITALS: BP 142/75; PULSE 90; TEMP 99.2; BMI 41.8
--- NOTE | 2019-03-04 16:32 | PDOC ---
Rapid Medical Evaluation Time Seen by Provider: 03/04/19 16:28 Medical Evaluation: Allergies Allergy/AdvReac Type Severity Reaction Status Date / Time No Known Allergies Allergy Verified 12/08/18 01:22 03/04/19 16:29 Pt c/o: uri c/o runny nose, sore throat, cough, + smoker, copd, also with urinary freq, no flank pain Pt on brief exam: vss, no resp distress Pt ordered for: ua, u cx Pt to proceed to the ED Discharge Disposition - Diagnosis Upper respiratory symptom, Urinary tract infection - Discharge Dispostion Disposition: HOME Condition at time of disposition: Stable - Prescriptions Prescriptions: Benzonatate [Tessalon Pearls -] 100 mg PO Q8H PRN #21 capsule PRN Reason: Cough Cephalexin Monohydrate [Keflex -] 500 mg PO BID 7 Days #14 capsule Ipratropium [place] 2 spray NS BID PRN #1 spray PRN Reason: nasal congestion Montelukast Na [Singulair -] 10 mg PO DAILY #7 tablet - Referrals Referrals: Luis More [Primary Care Provider] - - Patient Instructions Printed Discharge Instructions: Common Cold, Acute Bronchitis, DI for Urinary Tract Infection (UTI) Additional Instructions: Your urine shows bacteria in the urine. Take prescribed medication as prescribed for UTI and cough symptoms. Increase fluid intake. Follow-up with primary care - Post Discharge Activity
[2019-03-04 17:21] LABS: EPI CELLS 10.5 /HPF (0-5/HPF); HYALINE CASTS 2 /lpf (0-8); URINE APPEARANCE CLEAR; URINE BACTERIA 530.6 /hpf (NEGATIVE); URINE BILIRUBIN NEGATIVE (NEGATIVE); URINE COLOR YELLOW; URINE GLUCOSE (UA) NEGATIVE (NEGATIVE); URINE KETONE NEGATIVE (NEGATIVE); URINE LEUK ESTERASE 1+ (NEGATIVE); URINE NITRITE NEGATIVE (NEGATIVE); URINE PROTEIN NEGATIVE (NEGATIVE); URINE RBC 1 /hpf (0-4); URINE WBC 8 /hpf (0-5)
--- NOTE | 2019-03-04 17:26 | PDOC ---
History of Present Illness - General Chief Complaint: Urinary Problem Stated Complaint: SOB/PAIN Time Seen by Provider: 03/04/19 16:28 History Source: Patient Exam Limitations: Clinical Condition - History of Present Illness Initial Comments: 03/04/19 17:21 Morbidly obese patient with multiple comorbidities, COPD presented with complaint of 5-day history of persistent cough with intermittent yellow sputum, nasal congestion, runny nose, tactile fever and sinus pain. Patient also reports 3-day history of urinary frequency and dysuria but denies urgency. Patient did not take anything for symptoms. Denies nausea, vomiting, abdominal pain. Patient smokes daily of 5 to 10 cigarettes a day. Denies any other symptoms Is this a multiple visit Asthma Patient?: No Timing/Duration: other (5 days) Past History - Past Medical History Allergies/Adverse Reactions: Allergies Allergy/AdvReac Type Severity Reaction Status Date / Time No Known Allergies Allergy Verified 03/04/19 16:32 Home Medications: Ambulatory Orders Albuterol Sulfate Inhaler - [Ventolin Hfa Inhaler -] 1 - 2 inh PO QID 07/25/18 Alprazolam [Xanax] 1 mg PO QID PRN 07/25/18 Amlodipine Besylate [Norvasc -] 5 mg PO DAILY 07/25/18 Atorvastatin Ca [Lipitor] 20 mg PO HS 07/25/18 Azithromycin [Zithromax 250mg Tablets -] 250 mg PO UTDICT #4 tab 07/25/18 Fluticasone/Vilanterol [Breo Ellipta 100-25 Mcg INH] 1 each IH DAILY 07/25/18 Ibuprofen [Ibu] 800 mg PO BID PRN 07/25/18 Omeprazole 20 mg PO DAILY 07/25/18 Prednisone [Prednisone 50 MG TABLETS] 50 mg PO DAILY #5 tablet 07/25/18 Tramadol HCl 50 mg PO BID PRN 07/25/18 Umeclidinium [place] [Incruse Ellipta] 62.5 mcg IH DAILY 07/25/18 Oxycodone HCl 5 mg PO Q4H #20 capsule MDD 6 10/11/18 Clindamycin [Cleocin -] 300 mg PO Q6HPO #28 capsule 12/08/18 Benzonatate [Tessalon Pearls -] 100 mg PO Q8H PRN #21 capsule 03/04/19 Cephalexin Monohydrate [Keflex -] 500 mg PO BID 7 Days #14 capsule 03/04/19 Ipratropium [place] 2 spray NS BID PRN #1 spray 03/04/19 Montelukast Na [Singulair -] 10 mg PO DAILY #7 tablet 03/04/19 COPD: Yes HTN: Yes Thyroid Disease: Yes - Surgical History Cholecystectomy: Yes Orthopedic Surgery: Yes (b/l tkr) - Psycho Social/Smoking Cessation Hx Smoking History: Current every day smoker Have you smoked in the past 12 months: No Number of Cigarettes Smoked Daily: 5 Information on smoking cessation initiated: No 'Breaking Loose' booklet given: 10/15/17 Hx Alcohol Use: No Drug/Substance Use Hx: No Substance Use Type: None Review of Systems - Review of Systems Able to Perform ROS?: Yes Is the patient limited Zambian proficient: No Constitutional: Yes: Malaise. No: Chills, Fever HEENTM: Yes: Symptoms Reported, See HPI, Nose Congestion, Throat Pain. No: Eye Pain, Blurred Vision, Tearing, Recent change in vision, Double Vision, Cataracts , Ear Pain, Ocular Prothesis, Ear Discharge, Nose Pain, Tinnitus, Nose Bleeding , Hearing Loss, Throat Swelling, Mouth Pain, Dental Problems, Difficulty Swallowing, Mouth Swelling, Other Respiratory: Yes: Symptoms reported, See HPI, Cough. No: Orthopnea, Shortness of Breath, SOB with Exertion, SOB at Rest, Stridor, Wheezing, Productive cough, Hemoptysis, Other Cardiac (ROS): No: Symptoms Reported, See HPI, Chest Pain, Edema, Irregular Heart Rate, Lightheadedness, Palpitations, Syncope, Chest Tightness, Other ABD/GI: No: Symptoms Reported, Constipated, Diarrhea, Nausea, Vomiting, Abdominal cramping : Yes: Symptoms Reported, See HPI, Dysuria, Frequency, Urgency. No: Burning, Discharge, Flank Pain, Hematuria, Pain Musculoskeletal: No: Symptoms Reported Integumentary: No: Symptoms Reported Neurological: No: Symptoms reported All Other Systems: Reviewed and Negative *Physical Exam - Vital Signs Last Vital Signs Temp Pulse Resp BP Pulse Ox 99.2 F 90 18 142/75 97 03/04/19 16:27 03/04/19 16:27 03/04/19 16:27 03/04/19 16:27 03/04/19 16:27 - Physical Exam 03/04/19 17:24 GENERAL: Well developed, well nourished. Awake and alert. No acute distress. HEENT: Normocephalic, atraumatic. PERRLA, EOMI. No conjunctival pallor. Sclera are non-icteric. Moist mucous membranes. Oropharynx is clear. NECK: Supple. Full ROM. CARDIOVASCULAR: Regular rate and rhythm. No murmurs, rubs, or gallops. Distal pulses are 2+ and symmetric. PULMONARY: No evidence of respiratory distress. Lungs clear to auscultation bilaterally. No wheezing, rales or rhonchi. ABDOMINAL: Soft. Non-tender. Non-distended. No rebound or guarding. No organomegaly. Normoactive bowel sounds. MUSCULOSKELETAL Normal range of motion at all joints. SKIN: Warm and dry. Normal capillary refill. No rashes. No cyanosis. NEUROLOGICAL: Alert, awake, appropriate. Gait is normal without ataxia. PSYCHIATRIC: Cooperative. Good eye contact. Appropriate mood ED Treatment Course - ADDITIONAL ORDERS Additional order review: Laboratory Results 03/04/19 17:02 Urine Color Yellow Urine Appearance Clear Urine pH 6.0 Ur Specific [place] 1.008 L Urine Protein Negative Urine Glucose (UA) Negative Urine Ketones Negative Urine Blood Negative Urine Nitrite Negative Urine Bilirubin Negative Urine Urobilinogen 1.0 Ur Leukocyte Esterase 1+ H Urine WBC (Auto) 8 Urine RBC (Auto) 1 Urine Casts (Auto) 2 U Epithel Cells (Auto) 10.5 Urine Bacteria (Auto) 530.6 Medical Decision Making - Medical Decision Making 03/04/19 17:23 Morbidly obese patient with multiple comorbidities, COPD presented with complaint of 5-day history of persistent cough with intermittent yellow sputum, nasal congestion, runny nose, tactile fever and sinus pain. Patient also reports 3-day history of urinary frequency and dysuria but denies urgency. Patient did not take anything for symptoms. Denies nausea, vomiting, abdominal pain. Denies any other symptoms Exam significant for bilateral nasal congestion otherwise unremarkable exam. Lungs clear to auscultation bilateral. Patient afebrile. Symptoms likely viral URI with UTI versus strep. Rapid strep ordered to rule out strep pharyngitis 03/04/19 17:27 UA shows leukocytosis with WBCs. Patient stable for outpatient management on Keflex antibiotics and will be discharged home on Tessalon Per[place] and Atrovent nasal spray for URI with PCP follow-up Discharge - Discharge Information Problems reviewed: Yes Clinical Impression/Diagnosis: Upper respiratory symptom Urinary tract infection Qualifiers: Urinary tract infection type: site unspecified Hematuria presence: without hematuria Qualified Code(s): N39.0 - Urinary tract infection, site not specified Condition: Stable Disposition: HOME - Admission No - Additional Discharge Information Prescriptions: Benzonatate [Tessalon Pearls -] 100 mg PO Q8H PRN #21 capsule PRN Reason: Cough Cephalexin Monohydrate [Keflex -] 500 mg PO BID 7 Days #14 capsule Ipratropium [place] 2 spray NS BID PRN #1 spray PRN Reason: nasal congestion Montelukast Na [Singulair -] 10 mg PO DAILY #7 tablet - Follow up/Referral Referrals: Luis More [Primary Care Provider] - - Patient Discharge Instructions Patient Printed Discharge Instructions: Common Cold, Acute Bronchitis, DI for Urinary Tract Infection (UTI) Additional Instructions: Your urine shows bacteria in the urine. Take prescribed medication as prescribed for UTI and cough symptoms. Increase fluid intake. Follow-up with primary care - Post Discharge Activity
== END 2019-03-04 17:38 | disposition home or self-care (01) ==
LOC: JERFT 16:21
DX: J06.9 Acute upper respiratory infection, unspecified (principal); J44.9 Chronic obstructive pulmonary disease, unspecified; E66.8 Other obesity; Z68.41 Body mass index [BMI] 40.0-44.9, adult; I10 Essential (primary) hypertension; E07.9 Disorder of thyroid, unspecified; F17.210 Nicotine dependence, cigarettes, uncomplicated
CPT/HCPCS: 81003; 87070; 87086; 87186; 87880; 99281-25

== ENCOUNTER 2020-06-02 13:43 | Emergency (ER) | payer OTHER ==
[2020-06-02 13:48] VITALS: BP 152/68; PULSE 80; TEMP 97.9; BMI 42.8
[2020-06-02 15:17] LABS: PH,URINE 6.5 (5.0-8.0); URINE APPEARANCE CLEAR; URINE BILIRUBIN NEGATIVE (NEGATIVE); URINE COLOR YELLOW; URINE GLUCOSE (UA) NEGATIVE (NEGATIVE); URINE KETONE NEGATIVE (NEGATIVE); URINE LEUK ESTERASE NEGATIVE (NEGATIVE); URINE NITRITE NEGATIVE (NEGATIVE); URINE PROTEIN NEGATIVE (NEGATIVE)
== END 2020-06-02 15:00 | disposition home or self-care (01) ==
LOC: JERFT 13:43
DX: N30.00 Acute cystitis without hematuria (principal)
CPT/HCPCS: 81003; 87086; 99284-25

== ENCOUNTER 2021-01-02 15:29 | Emergency (ER) | payer OTHER ==
[2021-01-02 15:41] VITALS: BP 120/76; PULSE 73; TEMP 98.6; BMI 37.2
[2021-01-02 17:55] LABS: EPI CELLS >36 /uL (0-25.1); HYALINE CASTS 1 /uL (0-3.1); PH,URINE 5.5 (5.0-8.0); URINE APPEARANCE CLEAR; URINE BACTERIA 1306 /uL (0-1359); URINE BILIRUBIN NEGATIVE (NEGATIVE); URINE COLOR YELLOW; URINE GLUCOSE (UA) NEGATIVE (NEGATIVE); URINE KETONE TRACE (NEGATIVE); URINE LEUK ESTERASE TRACE (NEGATIVE); URINE NITRITE NEGATIVE (NEGATIVE); URINE PROTEIN NEGATIVE (NEGATIVE); URINE RBC 14 /uL (0-23.9); URINE WBC 12 /uL (0-25.8)
== END 2021-01-02 19:10 | disposition home or self-care (01) ==
LOC: JERFT 15:29
DX: S46.911A Strain of unspecified muscle, fascia and tendon at shoulder and upper arm level, right arm, initial encounter (principal); W01.0XXA Fall on same level from slipping, tripping and stumbling without subsequent striking against object, initial encounter
CPT/HCPCS: 73030-TC-RT-FY; 73070-TC-RT-FY; 73110-TC-RT-FY; 81003; 87086; 99284-25

== ENCOUNTER 2021-06-10 17:04 | Emergency (ER) | payer OTHER ==
[2021-06-10 17:11] VITALS: TEMP 98; BMI 38.0
[2021-06-10 18:13] LABS: PH,URINE 6.5 (5.0-8.0); URINE APPEARANCE CLEAR; URINE BILIRUBIN NEGATIVE (NEGATIVE); URINE COLOR YELLOW; URINE GLUCOSE (UA) NEGATIVE (NEGATIVE); URINE KETONE NEGATIVE (NEGATIVE); URINE LEUK ESTERASE NEGATIVE (NEGATIVE); URINE NITRITE NEGATIVE (NEGATIVE); URINE PROTEIN NEGATIVE (NEGATIVE)
[2021-06-10] MEDS ORDERED: methylPREDNISolone NA SUCC 125 MG/2 ML VIAL IVPUSH ONE (18:28)
[2021-06-10 18:42] LABS: BASO % 1.1 % (0-2.0); EOS % 1.5 % (0-4.5); HEMATOCRIT 43.2 % (32.4-45.2); HEMOGLOBIN 14.3 GM/dL (10.7-15.3); LYMPH % 26.6 % (8-40); MCH 30.1 pg (25.7-33.7); MEAN CELL VOLUME 91.3 fl (80-96); MEAN PLT VOLUME 7.7 fl (7.5-11.1); MONO % 6.8 % (3.8-10.2); PLATELET COUNT 314 10^3/uL (134-434); RBC 4.73 M/mm3 (3.60-5.2); RDW 15.2 % (11.6-15.6); WHITE BLOOD COUNT 15.5 K/mm3 (4.0-10.0)
[2021-06-10] MEDS ORDERED: methylPREDNISolone NA SUCC 125 MG/2 ML VIAL ONE (18:54)
[2021-06-10] MEDS ORDERED: ALBUTEROL SO4 2.5/IPRATROPIUM 0.5 INH SOL 3 ML VIAL.NEB. NEB ONE (18:54)
[2021-06-10 19:12] LABS: ALBUMIN 3.4 g/dl (3.4-5.0); BLOOD UREA NITROGEN 16.2 mg/dL (7-18); CALCIUM 9.6 mg/dL (8.5-10.1)
[2021-06-10 19:15] LABS: CREATININE 0.8 mg/dL (0.55-1.3)
[2021-06-10 19:17] LABS: BILIRUBIN,TOTAL 0.2 mg/dL (0.2-1); TOT PROT 6.2 g/dl (6.4-8.2)
[2021-06-10 19:20] LABS: N-TERMINAL BNP 175.3 pg/ml (5-125)
[2021-06-10] MEDS: ALBUTEROL SO4 2.5/IPRATROPIUM 0.5 INH SOL 3 ML VIAL.NEB. NEB SCH (19:33)
[2021-06-10 23:26] VITALS: BP 148/74; PULSE 80
== END 2021-06-10 23:35 | disposition home or self-care (01) ==
LOC: JER 17:04
PROC: 3E0F7GC Introduction of Other Therapeutic Substance into Respiratory Tract, Via Natural or Artificial Opening (ICD-10-PCS; principal; 2021-06-10)
PROC: 3E033GC Introduction of Other Therapeutic Substance into Peripheral Vein, Percutaneous Approach (ICD-10-PCS; 2021-06-10)
DX: N30.00 Acute cystitis without hematuria (principal); J06.9 Acute upper respiratory infection, unspecified
CPT/HCPCS: 36415; 71046-TC-FY; 80053; 81003; 83880; 84484; 85025; 87086; 93005; 93010; 99285-25

== ENCOUNTER 2021-07-11 14:48 | Emergency (ER) | payer OTHER ==
[2021-07-11 15:02] VITALS: BP 125/76; PULSE 78; TEMP 98.6; BMI 39.6
[2021-07-11] MEDS ORDERED: ALBUTEROL SO4 2.5/IPRATROPIUM 0.5 INH SOL 3 ML VIAL.NEB. NEB ONE ×2 (18:25→18:43)
[2021-07-12 13:07] LABS: SARS-CoV-2 NAA Not Detected (Not Detected)
== END 2021-07-11 20:35 | disposition home or self-care (01) ==
LOC: JER 14:48
PROC: 3E0F7GC Introduction of Other Therapeutic Substance into Respiratory Tract, Via Natural or Artificial Opening (ICD-10-PCS; principal; 2021-07-11)
DX: R05.1 Acute cough (principal); H60.332 Swimmer's ear, left ear
CPT/HCPCS: 87651; 87804; 99283-25; C9803-CS; U0003; U0005

== ENCOUNTER 2021-10-21 11:03 | Emergency (ER) | payer OTHER ==
[2021-10-21 11:38] VITALS: BP 104/56; PULSE 75; RESP 18; TEMP 98; BMI 38.9
[2021-10-21] MEDS ORDERED: SODIUM CHLORIDE 0.9% 500 ML INFUS.BAG IV ONE (11:58)
[2021-10-21] MEDS ORDERED: ACETAMINOPHEN 1000 MG/100 ML BAG IVPB ONE (11:58)
[2021-10-21 13:37] LABS: BASO % 0.9 % (0-2.0); EOS % 1.3 % (0-4.5); HEMATOCRIT 44.9 % (32.4-45.2); LYMPH % 11.5 % (8-40); MCH 30.7 pg (25.7-33.7); MCHC 33.5 g/dl (32.0-36.0); MEAN CELL VOLUME 91.6 fl (80-96); MEAN PLT VOLUME 8.3 fl (7.5-11.1); NEUT % 75.3 % (42.8-82.8); PLATELET COUNT 242 10^3/uL (134-434); RDW 14.5 % (11.6-15.6); WHITE BLOOD COUNT 7.6 K/mm3 (4.0-10.0)
[2021-10-21 13:53] LABS: ALBUMIN 3.9 g/dl (3.4-5.0); CALCIUM 9.9 mg/dL (8.5-10.1)
[2021-10-21 13:54] LABS: BLOOD UREA NITROGEN 11.9 mg/dL (7-18)
[2021-10-21 13:56] LABS: CREATININE 0.9 mg/dL (0.55-1.3)
[2021-10-21 13:59] LABS: BILIRUBIN,TOTAL 0.4 mg/dL (0.2-1); TOT PROT 7.1 g/dl (6.4-8.2)
[2021-10-21 14:28] LABS: EPI CELLS 21 /uL (0-25.1); HYALINE CASTS 1 /uL (0-3.1); PH,URINE 5.5 (5.0-8.0); URINE APPEARANCE CLEAR; URINE BACTERIA 252 /uL (0-1359); URINE BILIRUBIN NEGATIVE (NEGATIVE); URINE COLOR YELLOW; URINE GLUCOSE (UA) NEGATIVE (NEGATIVE); URINE KETONE NEGATIVE (NEGATIVE); URINE LEUK ESTERASE NEGATIVE (NEGATIVE); URINE NITRITE NEGATIVE (NEGATIVE); URINE PROTEIN NEGATIVE (NEGATIVE); URINE RBC 6 /uL (0-23.9); URINE WBC 11 /uL (0-25.8)
== END 2021-10-21 16:27 | disposition home or self-care (01) ==
LOC: JERFT 11:03
PROC: 3E0333Z Introduction of Anti-inflammatory into Peripheral Vein, Percutaneous Approach (ICD-10-PCS; principal; 2021-10-21)
DX: B34.9 Viral infection, unspecified (principal)
CPT/HCPCS: 36415; 80053; 81003; 85025; 87086; 87186; 99284-25